=== PATIENT | female | born 2000 | race Caucasian/White ===

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

== ENCOUNTER → 2021-07-01 | Outpatient (REF) | payer BC ==
[2021-07-01 12:41] LABS: HEMATOCRIT 41.7 % (36.0-47.0); HEMOGLOBIN 14.3 g/dl (12.0-15.5); MEAN CORPUSCULAR HEMOGLOBIN 30.5 pg (27.0-33.0); MEAN CORPUSCULAR HGB CONC 34.3 g/dl (32.0-36.5); MEAN CORPUSCULAR VOLUME 88.9 fl (80.0-96.0); PLATELET COUNT, AUTOMATED 242 10^3/uL (150-450); RED BLOOD COUNT 4.69 10^6/uL (4.00-5.40)
[2021-07-01 13:18] LABS: ALBUMIN 3.3 GM/DL (3.2-5.2); ALT/SGPT 29 U/L (12-78); BILIRUBIN,TOTAL 0.3 MG/DL (0.2-1.0); BLOOD UREA NITROGEN 10 MG/DL (7-18); CARBON DIOXIDE LEVEL 26 MEQ/L (21-32); CHLORIDE LEVEL 109 MEQ/L (98-107); CREATININE FOR GFR 0.76 MG/DL (0.55-1.30); FREE T4 1.01 NG/DL (0.78-1.33); GLUCOSE, FASTING 88 MG/DL (70-100); POTASSIUM SERUM 4.8 MEQ/L (3.5-5.1); SODIUM LEVEL 141 MEQ/L (136-145); TOTAL PROTEIN 6.8 GM/DL (6.4-8.2)
[2021-07-01 15:30] LABS: TOTAL 25(OH) VITAMIN D 35.9 NG/ML (30.0-100.0)
== END ==
LOC: M SFHCCLAY 08:23
PROVIDERS: ATTEND Nurse Practitioner Family
DX: F33.8 Other recurrent depressive disorders (principal)

== ENCOUNTER → 2021-09-02 | Outpatient (REF) | payer BC | LOC: M SFHCCLAY 11:56 | PROVIDERS: ATTEND Nurse Practitioner Family | DX: J02.9 Acute pharyngitis, unspecified (principal) ==

== ENCOUNTER → 2023-06-11 | Outpatient (REF) | payer BC ==
[2023-06-11 17:54] LABS: FREE T4 1.01 NG/DL (0.89-1.76)
[2023-06-11 17:55] LABS: THYROID STIMULATING HORMONE 0.666 uIU/ML (0.55-4.78)
== END ==
LOC: M SFHCCLAY 13:38
PROVIDERS: ATTEND Nurse Practitioner Family
DX: L65.9 Nonscarring hair loss, unspecified (principal)

== ENCOUNTER → 2025-02-21 | Outpatient (REF) | payer BC ==
[2025-02-21 20:01] LABS: Trichomonas vaginalis (AMP) NOT DETECTED (NEGATIVE)
[2025-02-21 20:25] LABS: GC DNA AMPLIFICATION NEGATIVE (NEGATIVE)
[2025-02-23 16:14] LABS: HPV APTIMA Not Detected (Not Detected)
== END ==
LOC: M SFHCCLAY 14:45
PROVIDERS: ATTEND Nurse Practitioner Family
DX: Z01.419 Encounter for gynecological examination (general) (routine) without abnormal findings (principal)
CPT/HCPCS: 87070; 87624; 87661; 87810; 87850; G0123